=== PATIENT | male | born 1980 ===

== ENCOUNTER 2018-06-14 11:18 | Outpatient (CLI) | payer OTHER ==
[~2018-06-14 11:18] MED LIST: ALLEGRA ALLERG180 MG PO; FLONASE16 GM NS; GILTUSS TR TAB1 EACH PO; ZITHROMAX TRI-500 MG PO
== END 2018-06-14 13:25 | disposition home or self-care (01) ==
LOC: LAB 11:18
DX: J20.0 Acute bronchitis due to Mycoplasma pneumoniae (principal)

== ENCOUNTER 2018-06-14 11:46 | Outpatient (CLI) | payer OTHER | END 2018-06-14 14:59 | disposition home or self-care (01) | LOC: RAD 11:46 | DX: J32.8 Other chronic sinusitis (principal) ==